=== PATIENT | female | born 1975 | race Caucasian/White ===

== ENCOUNTER 2023-12-15 15:07 | Outpatient (CLI) | payer OTHER, SELFPAY ==
--- NOTE | 2023-12-15 15:15 | ECG_ITS ---
SEE SCANNED COPY FOR CONFIRMED REPORT MTDD
== END 2023-12-15 15:08 | disposition home or self-care (01) ==
LOC: ANHSURGERY 15:13
PROVIDERS: Visit Provider Surgery Plastic and Reconstructive Surgery
DX: Z01.818 Encounter for other preprocedural examination (principal); I10 Essential (primary) hypertension
CPT/HCPCS: 93005

== ENCOUNTER 2023-12-17 00:12 | Day surgery (SDC) | payer OTHER, SELFPAY ==
[2023-12-10 14:51] VITALS: BMI 27.3
--- NOTE | 2023-12-10 15:48 | PC.NURSE ---
Report to the Outpatient Waiting Room, entrance under the green pavilion located off [facility], at time _1230_ on date _[id number]_. Planned Procedure Time: _230pm_. Time changes happen often and if your time is changed the preop area will call you the afternoon before. - You and your visitor will be asked to self-screen and do not enter if you have any COVID symptoms. - A mask is optional within the hospital at this time. Patients may have clear liquids (water, carbonated beverages, clear teas, apple juice) until 3 hours prior to surgery with a maximum of 20 ounces. - No food from midnight until time of surgery Take the following medications with a SIP of water the morning of surgery: ___None DO NOT STOP ANY OF YOUR OTHER PRESCRIPTION MEDICATIONS PRIOR TO SURGERY ?EXCEPT THE FOLLOWING Medications to discontinue per physician ____Vitamin Date to take last vrtr__[id number] Please no make-up, nail cypriot, hairspray, perfume, deodorant, or body powder the day of surgery. No jewelry (including any body piercings) or valuables the day of surgery, leave them at home. Please take a shower or bath the night before, or the morning of, surgery with an antibacterial soap. Wear comfortable, loose fitting clothing. - Jewelry must be removed prior to entering the operating room. Rings and piercings that are not removed may be cut off. - The hospital will not accept responsibility for valuables. - Please leave all valuables, including medications, at home the day of surgery. If you are going home after surgery, a licensed local bulk driver must drive you home. - NO public transportation without another adult if you receive anesthesia. - We recommend that an adult stay with you for 24 hours following discharge. - We also recommend that you do not drive, make important decision, drink alcoholic beverages, or take any drugs that were not prescribed by your health care provider for at least 24 hours after your discharge time. Follow any additional instructions given to you from your surgeon. If you or anyone in your household have experienced Covid symptoms in the past week, please notify your surgeon or the nurse liaison at the phone number below for possible testing. Telephone instructions given to _Venita__and asked if any additional questions and then verbalized understanding. Patient advised to call surgeon office or pre surgery nurse liaison [phone] if any additional questions.
[2023-12-17] VITALS (7 sets, daily range): BP systolic 137–153; BP diastolic 76–92; PULSE 62–87; RESP 16; TEMP 36.1–37.1; O2SAT 93–100
[2023-12-17] MEDS: LACTATED RINGERS 1,000 ML 30 ML IV CONT ×2 (13:34→15:40)
--- NOTE | 2023-12-17 13:37 | P.PNAN_ITS ---
Anes - Initial Pre Proc Eval Procedure: Operation Date: 12/17/23 14:30 Proposed Procedures p Bilateral Breast Implant Exchange - Cole Bloom MD Date/Time: 12/17/23 13:37 Surgeon: Cole Bloom MD Pre Op Diagnosis: Hx of Breast Aug Patient Data Age: 48 Gender: F Height: 1.75 m Weight: 84 kg Last Vital Signs Temp 98.7 F 12/17/23 13:28 Pulse 62 12/17/23 13:28 BP 149/88 H 12/17/23 13:28 Pulse Ox 99 12/17/23 13:28 O2 Del Method Room Air 12/17/23 13:28 Allergies Allergy/AdvReac Type Severity Reaction Status Date / Time Sulfa (Sulfonamide Allergy Severe Hives Verified 12/10/23 14:48 Antibiotics) Home Medications Medication Instructions Recorded Confirmed Type cetirizine 10 mg tablet (Zyrtec) 10 mg PO DAILY PRN Allergy Symptoms 12/10/23 12/10/23 History irbesartan 300 mg tablet 300 mg PO DAILY 12/10/23 12/10/23 History multivitamin-ferrous 1 tablet PO DAILY 12/10/23 12/10/23 History fumarate-folic acid 18 mg-400 mcg tablet (Centrum Women) omeprazole 10 mg capsule,delayed 10 mg PO Q48H 12/10/23 12/10/23 History release Patient hx anesthesia problems: none Family hx anesthesia problems: none Results Review: All pre-operative results and documents have been reviewed as part of the pre- operative evaluation. [facility] Social History Social History Smoking packs per day: 1 Smoking cigarettes per day: 20.0 Years smoked: 15 Smoking pack-years: 15.00 Smoking status: Former smoker Tobacco type: cigarettes Smoking end date: 12/09/14 Alcohol intake: current Drinks per week: 4 Living arrangements: with family Spiritual care concerns: No Anes - Eval Final PreProcedure Day of Procedure 12/17/23 13:37 Patient weight: overweight Heart: regular rate and rhythm Lungs: clear to auscultation Airway: Mallampati scale and special considerations (Overbite noted. ) Neurological: alert and oriented Last oral intake: >/= 8 hours ASA classification: II Emergent: no Anesthetic plan: proceed Anesthesia type and monitoring: general LMA and standard monitoring Results Review: All pre-operative results and documents have been reviewed as part of the pre- operative evaluation. Informed Consent: The patient's anesthetic plan and its attendant risks and benefits were discussed with the patient/family/POA. Questions were solicited and answers provided to the satisfaction of the patient/family/POA.
--- NOTE | 2023-12-17 14:11 | WPDHPUPDATE1 ---
History and Physical Update Update Date/Time: 12/17/23 14:11 History and Physical has been reviewed, including an updated exam of the patient. There are NO changes in the patient's condition. Risks, benefits, and alternatives have been discussed and questions answered. Patient agrees to proceed with procedure.
--- NOTE | 2023-12-17 14:11 | W.PM.PROC2 ---
Procedure Note - Detailed Date of Procedure 12/17/23 Pre-op Diagnosis Hx of Breast Aug Post-op Diagnosis Same Procedure Performed Bilateral breast implant exchange Surgeon Cole Bloom MD Anesthesia General Findings Previous implants: 68HP 350 cc intact New implants: Kamille Clemente SoftTouch 470cc Right - REF# [id number] SN [id number] Left - REF# [id number] SN [id number] Description of Procedure Preoperatively the risks, benefits, alternatives were discussed in extensive detail. I wanted to be very realistic about the risks involved as well as expectations. I was clear about how we could actually make her worse. Answered all questions to satisfaction. Voiced a clear understanding. Consent obtained. She was taken the operating room placed supine on the operating room table. Anesthesia provided by anesthesiology and prepped and draped in a standard sterile fashion. Surgical time-out was taken. 1% lidocaine and 0.25% Marcaine with epinephrine was used to provide a field block. Tegaderm nipple jensen were placed. Fifteen blade used to excise the previous IMF scars. Dissection was continued down until the capsules was identified and entered. Implants removed. I then copiously irrigated with 3 L of saline solution on TUR tubing. Verified strict hemostasis. I then irrigated with Betadine containing solution. Using a no-touch technique and a Epstein funnel the implant was introduced into the pocket. This was closed with 2-0 PDS followed by 3-0 Monocryl and a running subcuticular 4-0 Monocryl followed by tissue glue. Dressings were placed. She was woken taken to the PACU without difficulty. All instrument sponge counts were correct at the end of the case. Estimated Blood Loss 20 Drains No Packing No Pathology None sent Complications No immediate complications Condition Stable Disposition PACU
[2023-12-17] MEDS: ceFAZolin 2 GM/D5W 50 ML 2 GM/50 ML BAG IVPB (14:41)
[2023-12-17] MEDS: BUPivacaine HCL 0.25% PF 10 ML VIAL 30 ML INFILTRATE (15:04)
[2023-12-17] MEDS: LIDO 1%/EPINEPHRINE 1:100,000 20 ML VIAL 30 ML INFILTRATE (15:05)
[2023-12-17] MEDS: NACL 0.9% IRRIG POUR BOTTLE 900 ML, GENTAMICIN SULFATE INJ 160 MG, ceFAZolin 2 GM, POVI... IRRIGATION (15:19)
[2023-12-17] MEDS: fentaNYL CITRATE INJ (*CRX) 100 MCG/2 ML VIAL 25 MCG IV PUSH (16:54)
[2023-12-17] MEDS: oxyCODONE HCL (*CRX) 5 MG TAB IR PO (16:55)
== END 2023-12-17 17:24 | disposition home or self-care (01) ==
PROVIDERS: Visit Provider Surgery Plastic and Reconstructive Surgery
PROC: (CPT 19328; principal; 2023-12-17 14:30)
DX: Z45.812 Encounter for adjustment or removal of left breast implant (principal); Z45.811 Encounter for adjustment or removal of right breast implant; Z87.891 Personal history of nicotine dependence
CPT/HCPCS: 19328; 19325; A9270; J0690; J1100; J1580; J2250; J2405; J2704; J3010; J7120